=== PATIENT | male | born 1985 | race Caucasian/White ===

== ENCOUNTER 2019-06-22 23:21 | Emergency (ER) | payer SELFPAY ==
[~2019-06-22] VITALS: Ht 177.8 cm; Wt 86.2 kg
[2019-06-23] VITALS: BP 148/63
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
[2019-06-23] MEDS ORDERED: MORPHINE SULFATE INJ 4 MG/ML DISP.SYRIN ONE (02:00)
[2019-06-23] MEDS ORDERED: IBUPROFEN 600 MG TABLET PO ONE ×2 (02:00)
[2019-06-23] MEDS ORDERED: MORPHINE SULFATE INJ 2 MG/ML DISP.SYRIN IM ONE (02:00)
--- NOTE | 2019-06-23 02:38 | NUR ---
RADIOLOGY AT BEDSIDE FOR XRAY
--- NOTE | 2019-06-23 03:02 | NUR ---
PT C/O PAIN. MD AWARE.
[2019-06-23] MEDS ORDERED: HYDROCODONE/APAP 10/325MG 1 EA TABLET ONE (03:23)
[2019-06-23] MEDS ORDERED: HYDROCODONE/APAP 10/325MG 1 EA TABLET PO ONE (03:30)
--- NOTE | 2019-06-23 04:06 | NUR ---
Patient discharged to home in stable condition. Written and verbal after care instructions given. Patient verbalizes understanding of instruction. PT AMBULATORY WITH STEADY GAIT.
== END 2019-06-23 04:46 | disposition home or self-care (01) ==
LOC: ER 23:30
DX: S52.122A Displaced fracture of head of left radius, initial encounter for closed fracture (principal); S62.111A Displaced fracture of triquetrum [cuneiform] bone, right wrist, initial encounter for closed fracture; Z98.890 Other specified postprocedural states; V00.141A Fall from scooter (nonmotorized), initial encounter; Y93.I9 Activity, other involving external motion; Y92.89 Other specified places as the place of occurrence of the external cause; Y99.8 Other external cause status
CPT/HCPCS: 29125; 73080; 73090 ×2; 73110 ×2; 96372; 99283; J2270